=== PATIENT | male | born 1975 | race Caucasian/White ===

== ENCOUNTER 2020-11-04 22:12 | Emergency (ER) | payer OTHER, SELFPAY ==
[2020-11-04 22:23] VITALS: BP 120/80; PULSE 68; RESP 16; TEMP 36.9; O2SAT 96
--- NOTE | 2020-11-04 22:30 | PC.NURSE ---
area measured, it is 5cm
--- NOTE | 2020-11-04 22:54 | ED.WOUNDLAC ---
HPI - Wound/Laceration General Chief Complaint: Wound/Laceration Stated Complaint: cut head Source: patient and family Mode of arrival: ambulatory Limitations: no limitations History of Present Illness HPI narrative: Pt was dancing with his daughter and he slipped and fell and hit his head. no loc, no ms change, no n/v no headaches Onset (ago): minute(s) Location: scalp Related Data Home Medications Medication Instructions Recorded Confirmed No Home Medications 11/04/20 11/04/20 Allergies Allergy/AdvReac Type Severity Reaction Status Date / Time No Known Allergies Allergy Unverified 07/05/14 13:38 Review of Systems Review of Systems: All systems reviewed & are unremarkable except as noted in HPI and below Eyes: Eyes: Reports no additional eye complaints ENT: Reports system reviewed and no additional complaints, except as documented Cardiovascular: Cardiovascular: Reports no additional cardiovascular complaints Respiratory: Respiratory: Reports no additional respiratory complaints Gastrointestinal: Gastrointestinal: Reports no additional gastrointestinal complaints Genitourinary: Genitourinary: Reports no additional male genitourinary complaints Musculoskeletal: Comments: small bump to elbow Integumentary/Breasts: Skin/Breast: Reports system reviewed and no additional complaints, except as docu Neurologic: Reports system reviewed and no additional complaints, except as documented Psychiatric: Psychiatric: Reports no additional psychiatric complaints Endocrine: Endocrine: Reports no additional endocrine complaints Hematologic/Lymphatic: Hematologic/Lymphatic: Reports no additional hematologic/lymphatic complaints Allergic/Immunologic: Allergic/Immunologic: Reports no additional allergic/immunologic complaints PMFSH Social History Social History (Updated 11/04/20 @ 22:56 by Yadira Morrison MD) Smoking status: Current every day smoker Alcohol intake: current Substance use: never Living arrangements: with family Gender identity (if verbalized by the patient): Male Sexual Orientation (if Verbalized by the Patient): Straight or Heterosexual Comments no surgery, no medical problems Exam Const: General: healthy appearing, no acute distress and alert; No ill appearing Nutritional Appearance: well nourished Orientation/consciousness: patient oriented x3 and No confusion Limitations: No altered mental status HENMT: Head: normal to inspection Mouth: Yes moist mucous membranes Eyes: Conjunctivae: conjunctivae normal Pupils: Equal, round and reactive pupils present Neck: Neck: normal visual inspection Chest: Chest palpation & inspection: normal inspection of the chest Resp: Effort & Inspection: normal respiratory effort Auscultation: clear to auscultation bilaterally Cardio: Rate: regular rate Rhythm: regular rhythm GI: GI Palp: Yes Soft to palpation and No Tenderness to palpation present (GI) Auscultation: normal bowel sounds Back/Spine/Pelvis: Back: no CVA tenderness Skin: General skin exam: normal color Neuro: General: patient oriented x3 Extrem: General: normal to inspection Psych: Appearance: grossly normal Mental Status: mental status grossly normal Thought content: Yes Normal thought content present Course Vital Signs Vital signs: Vital Signs Temperature 36.9 C 11/04/20 22:23 Pulse Rate 68 11/04/20 22:23 Respiratory Rate 16 11/04/20 22:23 Blood Pressure 120/80 11/04/20 22:23 Pulse Oximetry 96 11/04/20 22:23 Temperature 36.9 C 11/04/20 22:23 Pulse Rate 68 11/04/20 22:23 Respiratory Rate 16 11/04/20 22:23 Blood Pressure 120/80 11/04/20 22:23 Pulse Oximetry 96 11/04/20 22:23 Procedures Laceration scalp: Date: 11/04/20 Time: 22:58 Site: scalp Size (cm): 2.5 Description: linear Depth: simple, single layer (no very deep) Local Anesthetic: lidocaine 1% Pre-
[2020-11-04] MEDS: LIDOCAINE HCL 1% LOCAL INJ 20 ML VIAL (22:55)
[2020-11-04] MEDS: TETANUS,DIPHTHERIA,AC PERTUSSIS ADULT 0.5 ML (ADACEL) (22:56)
[2020-11-04 23:17] VITALS: BP 130/88; PULSE 78; RESP 18; TEMP 36.6; O2SAT 98
== END 2020-11-04 23:28 | disposition home or self-care (01) ==
PROVIDERS: Emergency Provider Emergency Medicine; PCP Family Medicine
DX: S01.01XA Laceration without foreign body of scalp, initial encounter (principal); W01.0XXA Fall on same level from slipping, tripping and stumbling without subsequent striking against object, initial encounter
CPT/HCPCS: 12001; 90471; 90715; 99282

== ENCOUNTER 2023-10-07 13:01 | Emergency (ER) | payer OTHER, BC, SELFPAY ==
--- NOTE | ~2023-10-07 | XR_ITS ---
Clinical Indication: Chest pain PA and lateral views of the chest: Comparison: None Findings: The lungs are clear, without evidence of focal consolidation or pleural effusion. Cardiome diastinal silhouette is within normal limits. Bones and soft tissues are unremarkable. Impression: Normal chest. Reviewed, dictated and finalized at location . TYPE [employer]TER Impression: Normal chest.
[2023-10-07 13:01] VITALS: BP 150/95; PULSE 93; RESP 16; TEMP 36.9; O2SAT 98
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
[2023-10-07 14:51] VITALS: BP 139/85; PULSE 94; RESP 17; TEMP 36.7; O2SAT 100
== END 2023-10-07 14:51 | disposition home or self-care (01) ==
PROVIDERS: Emergency Provider Internal Medicine Critical Care Medicine; PCP Family Medicine
DX: S20.219A Contusion of unspecified front wall of thorax, initial encounter (principal); F17.200 Nicotine dependence, unspecified, uncomplicated; V58.0XXA Driver of pick-up truck or van injured in noncollision transport accident in nontraffic accident, initial encounter
CPT/HCPCS: 71046; 99283